=== PATIENT | female | born 1950 | race Two or more races ===

== ENCOUNTER 2019-01-01 21:57 | Inpatient (IN) | payer MEDICARE, MEDICAID | END 2019-01-04 15:00 | disposition home or self-care (01) | LOC: OVERFLOW 01-02 06:29 → EAST 01-02 08:00 → ER 21:57 | DX: K94.23 Gastrostomy malfunction (principal); N39.0 Urinary tract infection, site not specified; E44.1 Mild protein-calorie malnutrition; I69.920 Aphasia following unspecified cerebrovascular disease ==

== ENCOUNTER 2019-10-06 14:43 | Inpatient (IN) | payer MEDICARE, MEDICAID ==
[~2019-10-06] VITALS: Ht 154.9 cm; Wt 73.5 kg
[~2019-10-06 14:43] MED LIST: ASPI1TAB19 GT; ATOR20TA GT; FAMO-12 GT; LEVE500T22 PO; METF-370 GT
[2019-10-06] MEDS ORDERED: SODIUM CHLORIDE 0.9% 1,000 ML IV ONE ×2 (15:23)
[2019-10-06] MEDS ORDERED: cefTRIAXone 1GM/50ML D5W 50 ML IV ONE (16:00)
[2019-10-06 17:04] LABS: Basophils # (auto) 0 10 ^3/uL (0-0.2); Basophils % (auto) 0.4 % (0.0-2.0); Eosinophils # (auto) 0.1 10 ^3/uL (0-0.8); Eosinophils % (auto) 2.2 % (0.0-7.0); Hematocrit 42.5 % (36.0-46.0); Hemoglobin 14.7 g/dL (12.2-16.2); Lymphocytes # (auto) 2.2 10 ^3/uL (0.4-5.4); Lymphocytes % (auto) 35.3 % (10.0-50.0); Mean Corpuscular Hemoglobin 32.5 pg (28.0-32.0); Mean Corpuscular Hgb Conc. 34.6 g/dL (32.0-36.0); Mean Corpuscular Volume 93.8 fL (80.0-100.0); Monocytes # (auto) 0.4 10 ^3/uL (0-1.3); Monocytes % (auto) 6.9 % (0.0-12.0); Neutrophils # (auto) 3.4 10 ^3/uL (1.6-8.6); Neutrophils % (auto) 55.2 % (37.0-80.0); Platelet Count (auto) 174 10^3/uL (140-450); Red Blood Cells 4.53 10^6/uL (4.0-5.20); Red Cell Distribution Width 13.1 % (11.8-14.3); White Blood Cell 6.1 10^3/uL (4.4-10.8)
[2019-10-06 17:08] LABS: Albumin 3.6 g/dL (3.4-5.0); Anion Gap 7 (5-15); Blood Urea Nitrogen 14 mg/dL (7-18); Carbon Dioxide 25 mmol/L (21-32); Chloride 110 mmol/L (98-107); Glucose 153 mg/dL (74-106); Potassium 3.8 mmol/L (3.5-5.1); Sodium 142 mmol/L (136-145)
[2019-10-06 17:12] LABS: Alanine Aminotransferase 66 U/L (13-56); Alkaline Phosphatase 90 U/L (45-117); Aspartate Aminotransferase 40 U/L (15-37); BUN/Creatinine Ratio 31.1; Bilirubin, Total 0.3 mg/dL (0.2-1.0); GFR African American 179 mL/min; GFR Non-African American 148 mL/min; INR 1.05 (0.9-1.15); Partial Thromboplastin Time 23.1 sec (23.64-32.05); Total Protein 7.6 g/dL (6.4-8.2)
[2019-10-06 17:24] LABS: Urine Bacteria MOD /hpf (None Seen); Urine Blood 1+ /uL (Negative); Urine Budding Yeast FEW /hpf (None Seen); Urine Mucus FEW (None Seen); Urine Specific Gravity 1.007 (1.001-1.035); Urine WBC 15 /hpf (0 - 5)
[2019-10-06] MEDS ORDERED: DEXTROSE (50%) 50ML SYRG IV PRN (18:30)
[2019-10-06] MEDS ORDERED: ACETAMINOPHEN 500 MG TAB PO PRN (18:30)
[2019-10-06] MEDS ORDERED: MORPHINE SULF INJ 2 MG/ML SYRINGE 1ML IV PRN ×2 (18:30)
[2019-10-06] MEDS ORDERED: NITROGLYCERIN 0.4 MG SL TAB SL PRN (18:30)
[2019-10-06] MEDS ORDERED: ONDANSETRON HCL 4 MG/2 ML VIAL IV PRN (18:30)
[2019-10-06] MEDS ORDERED: Glucerna 1.2 Cal 1Liter BOTTLE GT SCH (19:15)
--- NOTE | 2019-10-06 21:00 | NUR ---
Telemetry admit from ER RANGEL TORRES admitted to Telemetry unit after SBAR received. Patient oriented to JANE THOMPSON RN primary RN, unit, room, bed, and unit policies regarding patient care and visiting hours. Patient now on continuous telemetry monitoring, tele box # 34 and telemetry reading on arrival to unit is 56 running bradycardia. Patient weighed by bedscale and encouraged to call if they need something. All questions and concerns addressed, patient verbalized understanding. bed in low position and call light within reach.
[2019-10-06 22:00] VITALS: BP 93/40
[2019-10-06] MEDS: DOCUSATE SOD 100 MG CAP PO SCH (22:00)
[2019-10-06] MEDS: levETIRAcetam 500 MG TAB PO SCH (22:00)
[2019-10-06] MEDS: SODIUM CHLORIDE 0.9% 1,000 ML IV SCH (23:29)
[2019-10-06] MEDS: MEROPENEM 1GM IVPB 100 ML IV SCH (23:30)
[2019-10-06] MEDS: InsuLIN REG 1unit/0.01ml Soln (100units/ml) SC SCH (23:33)
[2019-10-06] MEDS: ACCU-CHEK COMFORT CURVE STRIP VI SCH (23:33)
--- NOTE | 2019-10-07 00:39 | NUR ---
INFORMED MENHADEN VESSEL PILOT REZA PATIENT HAS NO DIET SCHEDULED AND HAS GTUBE PLACED FROM HOME. INFORMED MENHADEN VESSEL PILOT PATIENT IS CONFUSED AND I AM UNAWARE IF PATIENT RECEIVES FEEDINGS AT HOME . ORDERS RECEIVED FOR NUTRITION CONSULT. ORDERS READ BACK AND VERIFIED BY .
[2019-10-07] MEDS: MEROPENEM 1GM IVPB 100 ML IV SCH ×3 (01:25→18:39)
--- NOTE | 2019-10-07 01:25 | NUR ---
received medication merrem from pharmacy will administer as ordered.
--- NOTE | 2019-10-07 03:19 | NUR ---
patient is resting in bed denies sob distress or pain. patient repositioned. bed in low position and call light within reach
[2019-10-07 04:36] VITALS: BP 108/58
[2019-10-07 05:54] LABS: Basophils # (auto) 0 10 ^3/uL (0-0.2); Basophils % (auto) 0.5 % (0.0-2.0); Eosinophils # (auto) 0.1 10 ^3/uL (0-0.8); Eosinophils % (auto) 1.9 % (0.0-7.0); Hematocrit 37.8 % (36.0-46.0); Hemoglobin 13.2 g/dL (12.2-16.2); Lymphocytes # (auto) 2.3 10 ^3/uL (0.4-5.4); Lymphocytes % (auto) 36.5 % (10.0-50.0); Mean Corpuscular Hemoglobin 32.5 pg (28.0-32.0); Mean Corpuscular Hgb Conc. 34.9 g/dL (32.0-36.0); Mean Corpuscular Volume 93.2 fL (80.0-100.0); Monocytes # (auto) 0.4 10 ^3/uL (0-1.3); Monocytes % (auto) 6.3 % (0.0-12.0); Neutrophils # (auto) 3.4 10 ^3/uL (1.6-8.6); Neutrophils % (auto) 54.8 % (37.0-80.0); Nucleated Red Blood Cells % 0.1 %; Platelet Count (auto) 153 10^3/uL (140-450); Red Blood Cells 4.06 10^6/uL (4.0-5.20); White Blood Cell 6.2 10^3/uL (4.4-10.8)
[2019-10-07 06:14] LABS: Calcium 8.8 mg/dL (8.5-10.1); Potassium 3.7 mmol/L (3.5-5.1)
[2019-10-07] MEDS: ACCU-CHEK COMFORT CURVE STRIP VI SCH ×4 (06:31→22:00)
[2019-10-07] MEDS: InsuLIN REG 1unit/0.01ml Soln (100units/ml) SC SCH ×4 (06:31→22:00)
--- NOTE | 2019-10-07 06:43 | NUR ---
patient is in bed sleeping bilateral chest rise and fall [id number]. shows no signs of distress sob or pain. bed in low position and call light within reach. bed alarm on.
--- NOTE | 2019-10-07 07:14 | NUR ---
REPORT GIVEN TO DAYSHIFT RN. PATIENT DENIES SOB/DISTRESS OR PAIN
[2019-10-07 07:21] LABS: BUN/Creatinine Ratio 37.5
--- NOTE | 2019-10-07 07:40 | NUR ---
OPENING SHIFT NOTE: PATIENT AWAKE RESTING IN BED. PATIENT A/OX3 TIME UPDATED TO PATIENT AND RE-ORIENTED. PATIENT DENIES ANY PAIN OF DISCOMFORT AT THIS TIME. DON HUNG BELOW BLADDER FREE OF KINKS, TUBES, LINES, AND DRAINS POSITIONED OFF PATIENT SKIN. ROOM WELL LIT, WINDOWS OPENED FOR ORIENTATION. RESPIRATIONS EVEN AND UNLABORED. CALL LIGHT WITHIN REACH, WILL CONTINUE TO MONITOR.
--- NOTE | 2019-10-07 08:35 | NUR ---
FAMILY AT BEDSIDE: MIYA UPDATED ON PLAN OF CARE. PER PATIENT DOES NOT USE THE FEEDING TUBE ANYMORE, AND IS EATING WELL AT HOME.
[2019-10-07 09:00] VITALS: BP 114/67
[2019-10-07] MEDS: DOCUSATE SOD 100 MG CAP PO SCH ×2 (10:00→22:32)
[2019-10-07] MEDS: ASPirin-EC 81 mg tab PO SCH (10:22)
[2019-10-07] MEDS: SODIUM CHLORIDE 0.9% 1,000 ML IV SCH ×2 (10:22→21:10)
[2019-10-07] MEDS: ATORVASTATIN 20 MG TAB PO SCH (10:22)
[2019-10-07] MEDS: levETIRAcetam 500 MG TAB PO SCH ×2 (10:22→22:32)
[2019-10-07] MEDS: metFORMIN HYDROCHLORIDE 500 MG TAB GT SCH (10:22)
[2019-10-07] MEDS: FAMOTIDINE 20 MG TAB GT SCH (10:23)
[2019-10-07] MEDS ORDERED: FLUCONAZOLE 100 MG TAB PO ONE (12:00)
--- NOTE | 2019-10-07 12:37 | NUR ---
AIR MATTRESS: Air mattress ordered at [facility],Reference # [id number]; ETA 10/07/19 @1836, Call [facility] if need to follow up at [phone] Addendum: 10/07/19 at 1238 by Pita Serna RN Amended: Links added.
[2019-10-07 12:51] VITALS: BP 124/69
--- NOTE | 2019-10-07 12:59 | NUR ---
DON CHANGED: 14FR INSERTED, 10CC NS FILLED BALLOON, HUNG BELOW BLADDER, CATHETER FREE OF KINKS. PATIENT TOLERATED WELL.
[2019-10-07] MEDS ORDERED: Glucerna 1.2 Cal 1Liter BOTTLE GT SCH (13:30)
--- NOTE | 2019-10-07 13:46 | NUR ---
WOUND CARE NOTE: Wound care in to see patient per wound care request regarding low Mayur score of 12,putting patient to high risk for skin breakdown. Patient is 69 years old female with admitting diagnosis of Acute Cystitis. Patient with history of htn,NIDDM, CVA w/ Lt side deficit,and Seizure disorder. Patient is resting in bed in Rm. 202. Patient is awake, alert and able to verbalize needs. Patient is in no stated pain at this time and she appears to be in no pain using Leyva Khan Faces pain Scale. She need assistance in turning and repositioning. Skin assessment done with the help of nurse lab assistant. No open wound noted other than intact pink scar tissue to sacrum. Patient is receiving BID/PRN cleaning and application of Barrier cream to sacral,buttocks as preventative per MD order. Patient tolerated well, repositioned for comfort facing her Rt side, redistributed pressure points with pillows and elevated heels on pillows. Patient's family and nurse lab assistant at bedside. Patient will benefit with air mattress, she weighs 39.3 kg. RECOMMENDATION: Nursing to continue with BID/PRN cleaning and application of barrier cream to sacral,buttocks as preventative per MD order, Dietary consult for Low Mayur score, elevate heels on pillow,frequent turning and repositioning schedule as condition permits, redistribute pressure points with pillows, air mattress (ordered), continue monitoring by wound care while patient is hospitalized. Addendum: 10/07/19 at 1626 by Pita Serna RN Amended: Links added.
--- NOTE | 2019-10-07 15:08 | NUR ---
SWALLOW EVALUATED. PATIENT HAS NATURAL TEETH, UPPER AND LOWER. ABLE TO FOLLOW COMMANDS FROM ARMENIAN-CHADIAN SHIRA. PATIENT ABLE TO TOLERATE MECHANICAL SOFT DIET TEXTURE WITH THIN LIQUIDS WITH NO OVERT SIGNS OR SYMPTOMS OF ASPIRATION. NURSING PRESENT.
--- NOTE | 2019-10-07 15:57 | NUR ---
Nutrition Assessment Notes Please refer to link for full assessment notes. Est energy needs: 1735-8828 kcals (23-25 kcal/kgIBW) d/t age, underweight Est protein needs: 49-62 gms/day (0.8-1.0 gm/kgIBW) Will continue to monitor and reassess prn. Addendum: 10/07/19 at [address] Amended: Links added.
--- NOTE | 2019-10-07 16:35 | NUR ---
Midline Placement: Patient educated on need for midline placement. All risks and benefits explained and all questions and concerns addresses prior to procedure. 18g/10cm midline inserted via RIGHT CEPHALIC vein using Ultrasound. Sterile technique utilized. Blood return obtained from lumen and flushed easily with NS using proper technique. Midline secured with saline lock; biodisc and occlusive dressing applied. Primary RN notified. Midline lot #[id number].
[2019-10-07 17:00] VITALS: BP 124/62
--- NOTE | 2019-10-07 17:20 | NUR ---
AIR MATTRESS: PATIENT PLACED ON SPECIALTY AIR MATTRESS.
--- NOTE | 2019-10-07 18:40 | NUR ---
DINNER: PATIENT MAX ASSIST WITH FEEDING. PATIENT APPEARS TO HAVE GOOD APPETITE TOLERATING DIET WELL. ASPIRATION AND SEIZURE PRECAUTIONS IN PLACE.
--- NOTE | 2019-10-07 19:21 | NUR ---
CARE ENDORSED TO LETTY LANDAVERDE.
[2019-10-07 21:58] VITALS: BP 126/58
[2019-10-08 05:00] VITALS: BP 121/53
[2019-10-08] MEDS: MEROPENEM 1GM IVPB 100 ML IV SCH ×2 (06:19→18:19)
[2019-10-08] MEDS: ACCU-CHEK COMFORT CURVE STRIP VI SCH ×4 (06:20→22:43)
[2019-10-08] MEDS: InsuLIN REG 1unit/0.01ml Soln (100units/ml) SC SCH ×4 (06:26→22:46)
[2019-10-08 09:00] VITALS: BP 103/53
[2019-10-08] MEDS: ASPirin-EC 81 mg tab PO SCH (09:58)
[2019-10-08] MEDS: FAMOTIDINE 20 MG TAB GT SCH (09:58)
[2019-10-08] MEDS: ATORVASTATIN 20 MG TAB PO SCH (09:58)
[2019-10-08] MEDS: levETIRAcetam 500 MG TAB PO SCH ×2 (09:58→22:47)
[2019-10-08] MEDS: DOCUSATE SOD 100 MG CAP PO SCH ×2 (09:58→22:47)
[2019-10-08] MEDS: metFORMIN HYDROCHLORIDE 500 MG TAB GT SCH (10:14)
--- NOTE | 2019-10-08 12:51 | NUR ---
I faxed home IV ATB order to [facility].
[2019-10-08 13:00] VITALS: BP 122/57
--- NOTE | 2019-10-08 13:00 | NUR ---
NPO UNTIL 1999: CALL FROM ULTRASOUND, PATIENT TO BE NPO UNTIL 1999 OR 2099 FOR [facility] ULTRASOUND.
--- NOTE | 2019-10-08 14:30 | NUR ---
assessment Patient is a 69 year old female who is confused. Per patients daughter Malia prior to admission patient lived home with family and functioned with assistance. Patient has a hospital bed, wheelchair, and 02 for home use. Patients PCP is Dr Wood. Bret Finley patient is on service with [facility]. Per Malia patient to resume with [facility] on discharge. I informed Malia of patients consult for home IV ABX. Per Malia [facility] and she is teachable. Ivett casework supervisor and Erika BERNARD will satisfy order. Malia verbalized understanding and agreed to discharge plan home. Addendum: 10/08/19 at 1434 by Peggy EWING Amended: Links added.
--- NOTE | 2019-10-08 16:07 | NUR ---
D/C Planning Per consult to resume home health with [facility] for IV abx with Meropenem 1 gm q12h for 12 days. Faxed order to [facility] home health. JONATHAN Root will complete the IV abx infusion. Received a followed up called from Ms. Navarro with [facility] ) or Ph: ) advising me they will see patient within 24-48hrs upon d/c day. Will follow up with [facility] upon d/c day.
[2019-10-08 17:00] VITALS: BP 124/70
--- NOTE | 2019-10-08 19:17 | NUR ---
CARE ENDORSED TO LETTY LANDAVERDE.
--- NOTE | 2019-10-08 19:47 | NUR ---
REPORT GIVEN TO EDDI LANDAVERDE. PATIENT RESTING WITH NO S/S OF DISTRESS NOTED.
--- NOTE | 2019-10-08 19:49 | NUR ---
Opening Shift Note Assumed care of patient. Pt is awake, alert and orientated x 4. No S/S of distress/SOB or pain. Pt is calm and speaking appropriately. Pt is NPO awaiting US of abdomen. Pt has severe lower and upper extremity contractures. Bed is in lowest position with side rails up x 2. Bed brakes are locked and call light is with in reach. HOB is 30 degrees. Valadez catheter is patent with no kinks, loops, and is below bladder. Instructed on POC and to call for assist PRN, will continue to monitor for changes Q1hr and PRN.
[2019-10-08 21:20] VITALS: BP 115/53
[2019-10-09 05:16] VITALS: BP 107/54
[2019-10-09] MEDS: MEROPENEM 1GM IVPB 100 ML IV SCH ×2 (05:35→14:14)
[2019-10-09] MEDS: ACCU-CHEK COMFORT CURVE STRIP VI SCH ×2 (06:06→11:00)
[2019-10-09] MEDS: InsuLIN REG 1unit/0.01ml Soln (100units/ml) SC SCH ×2 (06:07→11:00)
[2019-10-09 08:00] VITALS: BP 104/57
[2019-10-09] MEDS: metFORMIN HYDROCHLORIDE 500 MG TAB GT SCH (08:01)
[2019-10-09 09:24] LABS: Hepatitis B Surface Antibody Negative
[2019-10-09] MEDS: DOCUSATE SOD 100 MG CAP PO SCH (09:37)
[2019-10-09] MEDS: FAMOTIDINE 20 MG TAB GT SCH (09:37)
[2019-10-09] MEDS: ASPirin-EC 81 mg tab PO SCH (09:37)
[2019-10-09] MEDS: levETIRAcetam 500 MG TAB PO SCH (09:38)
[2019-10-09] MEDS: ATORVASTATIN 20 MG TAB PO SCH (09:38)
[2019-10-09 09:53] LABS: Hepatitis A Total Antibody Positive
[2019-10-09 10:10] LABS: Hepatitis B Core Total AB Negative; Hepatitis B Surface Antigen Negative (Negative); Hepatitis C Antibody Negative (Negative)
--- NOTE | 2019-10-09 10:53 | NUR ---
Faxed flush order to [facility].
[2019-10-09 12:00] VITALS: BP 112/54
--- NOTE | 2019-10-09 13:26 | NUR ---
I received a call from Sohan at [facility] asking if today's last dose of IV ATB can be given prior to discharge so they don't have to send a nurse out until tomorrow. I spoke with patient's nurse-she will give today's last IV ATB dose now-provided her with phone numbers to [facility] ([phone]) as well as [facility] ([phone]) to provide to patient's family. Addendum: 10/09/19 at 1533 by Ivett Landry RN Bret Schmitt at [facility], they will deliver IV ATB to patient's home 7-10pm rené.
--- NOTE | 2019-10-09 17:34 | NUR ---
Discharge instructions given as ordered. Encourage to follow up with PMD as instructed. All questions and concerns addressed. Patient verbalized understanding. Medication reconciliation form completed and copy given to patient. Patient sent home with midline Patient sent home with Valadez catheter. Telemetry unit returned to ICU. Patient taken to vehicle via wheelchair with all personal belongings, accompanied by staff and family member. No distress noted at time of departure.
== END 2019-10-09 17:33 | disposition home health service (06) | DRG 690 ==
LOC: EDBD 14:43 → ER 14:57 → TELE 14:58 → TELE-CENTR 20:58
PROVIDERS: ADMIT Nurse Practitioner Acute Care; ATTEND Internal Medicine
DX: N39.0 Urinary tract infection, site not specified (principal); I69.354 Hemiplegia and hemiparesis following cerebral infarction affecting left non-dominant side; E86.0 Dehydration; B96.5 Pseudomonas (aeruginosa) (mallei) (pseudomallei) as the cause of diseases classified elsewhere; B96.20 Unspecified Escherichia coli [E. coli] as the cause of diseases classified elsewhere; B37.3 Candidiasis of vulva and vagina; E11.9 Type 2 diabetes mellitus without complications; G40.909 Epilepsy, unspecified, not intractable, without status epilepticus; I10 Essential (primary) hypertension
CPT/HCPCS: 36415; 71045; 76705; 80048; 80053; 81001; 82962; 83036; 83605; 83880; 84484; 85025; 85610; 85730; 86704; 86706; 86708; 86803; 87040; 87081; 87086; 87340; 92610; G0378; J0696; J1815; J2185

== ENCOUNTER 2021-08-27 15:50 | Emergency (ER) | payer MEDICARE, MEDICAID ==
[~2021-08-27] VITALS: Ht 167.6 cm; Wt 54.4 kg
[~2021-08-27 15:50] MED LIST changes: -LEVE500T22 PO; +LEVE500T32 PO
[2021-08-27 17:19] VITALS: BP 115/63
[2021-08-27] MEDS ORDERED: CIPR-173 PO (17:23)
== END 2021-08-27 17:47 | disposition home or self-care (01) ==
LOC: ER 15:54
DX: Z46.6 Encounter for fitting and adjustment of urinary device (principal); N39.0 Urinary tract infection, site not specified; E11.9 Type 2 diabetes mellitus without complications; E78.5 Hyperlipidemia, unspecified; Z86.73 Personal history of transient ischemic attack (TIA), and cerebral infarction without residual deficits; Z79.82 Long term (current) use of aspirin; Z79.2 Long term (current) use of antibiotics; Z79.899 Other long term (current) drug therapy
CPT/HCPCS: 51702

== ENCOUNTER 2021-10-31 11:23 | Emergency (ER) | payer MEDICARE, MEDICAID ==
[~2021-10-31] VITALS: Ht 162.6 cm; Wt 54.4 kg
[~2021-10-31 11:23] MED LIST changes: +CEFD300C2 PO; +CIPR-173 PO
[2021-10-31 12:14] LABS: Basophils # (auto) 0 10 ^3/uL (0-0.2); Basophils % (auto) 0.7 % (0.0-2.0); Eosinophils # (auto) 0.1 10 ^3/uL (0-0.8); Eosinophils % (auto) 2.8 % (0.0-7.0); Hematocrit 43.1 % (36.0-46.0); Hemoglobin 14.6 g/dL (12.2-16.2); Lymphocytes # (auto) 1.7 10 ^3/uL (0.4-5.4); Lymphocytes % (auto) 34.6 % (10.0-50.0); Mean Corpuscular Hemoglobin 31.8 pg (28.0-32.0); Mean Corpuscular Hgb Conc. 33.9 g/dL (32.0-36.0); Mean Corpuscular Volume 93.9 fL (80.0-100.0); Monocytes # (auto) 0.2 10 ^3/uL (0-1.3); Monocytes % (auto) 3.9 % (0.0-12.0); Neutrophils # (auto) 2.9 10 ^3/uL (1.6-8.6); Nucleated Red Blood Cells % 0.2 %; Red Blood Cells 4.59 10^6/uL (4.0-5.20); Red Cell Distribution Width 13.7 % (11.8-14.3); White Blood Cell 4.9 10^3/uL (4.4-10.8)
[2021-10-31 12:33] LABS: Potassium 4.2 mmol/L (3.5-5.1)
[2021-10-31 12:37] LABS: Albumin 3.7 g/dL (3.4-5.0); BUN/Creatinine Ratio 18.6; Bilirubin, Total 0.6 mg/dL (0.2-1.0); Calcium 9.4 mg/dL (8.5-10.1); Total Protein 7.7 g/dL (6.4-8.2)
[2021-10-31 17:31] LABS: Urine Amorphous Crystal FEW /hpf (None Seen); Urine Bacteria MANY /hpf (None Seen); Urine Blood 1+ /uL (Negative); Urine Mucus FEW (None Seen); Urine Specific Gravity 1.021 (1.001-1.035); Urine WBC 492 /hpf (0 - 5); Urine WBC Clumps PRESENT /hpf (None Seen)
[2021-10-31] MEDS ORDERED: NITR-87 PO (19:59)
[2021-10-31] MEDS ORDERED: FLEET ENEMA(ADULT) 135 ML PR ONE (20:00)
[2021-10-31] MEDS ORDERED: NITROFURANTOIN 100 mg CAP PO ONE (20:00)
[2021-11-01 00:23] VITALS: BP 115/61
== END 2021-11-01 00:24 | disposition home or self-care (01) ==
LOC: ER 11:23
DX: N39.0 Urinary tract infection, site not specified (principal); K56.41 Fecal impaction; E11.9 Type 2 diabetes mellitus without complications; E78.5 Hyperlipidemia, unspecified; Z86.73 Personal history of transient ischemic attack (TIA), and cerebral infarction without residual deficits
CPT/HCPCS: 36415; 74176; 80053; 81001; 82150; 83690; 85025

== ENCOUNTER 2022-01-13 09:32 | Emergency (ER) | payer MEDICARE, MEDICAID ==
[~2022-01-13] VITALS: Ht 162.6 cm; Wt 54.4 kg
[~2022-01-13 09:32] MED LIST changes: +NITR-87 PO
[2022-01-13] MEDS ORDERED: OMNIPAQUE ORAL SOLN 500ml 12mg/ml PO ONE (10:47)
[2022-01-13 10:50] LABS: Basophils # (auto) 0 10 ^3/uL (0-0.2); Basophils % (auto) 0.5 % (0.0-2.0); Eosinophils # (auto) 0.1 10 ^3/uL (0-0.8); Eosinophils % (auto) 2.8 % (0.0-7.0); Hematocrit 41.2 % (36.0-46.0); Hemoglobin 13.9 g/dL (12.2-16.2); Lymphocytes # (auto) 1.7 10 ^3/uL (0.4-5.4); Mean Corpuscular Hemoglobin 32.5 pg (28.0-32.0); Mean Corpuscular Hgb Conc. 33.9 g/dL (32.0-36.0); Mean Corpuscular Volume 96.1 fL (80.0-100.0); Monocytes # (auto) 0.3 10 ^3/uL (0-1.3); Monocytes % (auto) 5.1 % (0.0-12.0); Neutrophils # (auto) 3.1 10 ^3/uL (1.6-8.6); Neutrophils % (auto) 58.6 % (37.0-80.0); Nucleated Red Blood Cells % 0.1 %; Red Blood Cells 4.29 10^6/uL (4.0-5.20); Red Cell Distribution Width 13.9 % (11.8-14.3); White Blood Cell 5.2 10^3/uL (4.4-10.8)
[2022-01-13 11:08] LABS: Albumin 3.8 g/dL (3.4-5.0); BUN/Creatinine Ratio 14.6; Calcium 9.1 mg/dL (8.5-10.1); Potassium 3.9 mmol/L (3.5-5.1)
[2022-01-13 11:11] LABS: Bilirubin, Total 0.5 mg/dL (0.2-1.0); Total Protein 7.5 g/dL (6.4-8.2)
[2022-01-13] MEDS ORDERED: DOCUSATE SOD 100 MG CAP PO ONE (15:15)
[2022-01-13] MEDS ORDERED: LACTULOSE 20Gm/30ML SOLN PO ONE (15:15)
[2022-01-13] MEDS ORDERED: MILK OF MAGNESIA 30ML SUSP PO ONE (15:15)
[2022-01-13] MEDS ORDERED: FLEET ENEMA(ADULT) 135 ML PR ONE (17:30)
[2022-01-13] MEDS ORDERED: DOCU-94 PO ×2 (17:36→17:38)
[2022-01-13 22:00] VITALS: BP 117/63
== END 2022-01-14 00:59 | disposition home or self-care (01) ==
LOC: ER 09:32
DX: K59.00 Constipation, unspecified (principal); E78.5 Hyperlipidemia, unspecified; Z86.73 Personal history of transient ischemic attack (TIA), and cerebral infarction without residual deficits
CPT/HCPCS: 36415; 74022; 74176; 80053; 85025

== ENCOUNTER 2022-05-18 06:28 | Day surgery (SDC) | payer MEDICARE, MEDICAID ==
[2022-05-15 12:14] LABS: Basophils # (auto) 0 10 ^3/uL (0-0.2); Basophils % (auto) 0.5 % (0.0-2.0); Eosinophils # (auto) 0.1 10 ^3/uL (0-0.8); Eosinophils % (auto) 1.6 % (0.0-7.0); Hematocrit 41.4 % (36.0-46.0); Hemoglobin 13.9 g/dL (12.2-16.2); Lymphocytes # (auto) 1.5 10 ^3/uL (0.4-5.4); Lymphocytes % (auto) 30.8 % (10.0-50.0); Mean Corpuscular Hemoglobin 31.9 pg (28.0-32.0); Mean Corpuscular Hgb Conc. 33.5 g/dL (32.0-36.0); Mean Corpuscular Volume 95.3 fL (80.0-100.0); Monocytes # (auto) 0.3 10 ^3/uL (0-1.3); Monocytes % (auto) 5.5 % (0.0-12.0); Neutrophils % (auto) 61.6 % (37.0-80.0); Nucleated Red Blood Cells % 0.1 %; Red Blood Cells 4.35 10^6/uL (4.0-5.20); Red Cell Distribution Width 13.6 % (11.8-14.3); White Blood Cell 4.8 10^3/uL (4.4-10.8)
[2022-05-15 12:51] LABS: Urine Bacteria NONE SEEN /hpf (None Seen); Urine Blood Negative /uL (Negative); Urine Specific Gravity 1.012 (1.001-1.035); Urine WBC 32 /hpf (0 - 5)
[2022-05-15 12:56] LABS: Albumin 3.6 g/dL (3.4-5.0); BUN/Creatinine Ratio 20.5; Bilirubin, Total 0.5 mg/dL (0.2-1.0); Calcium 8.7 mg/dL (8.5-10.1); Total Protein 7.2 g/dL (6.4-8.2)
[2022-05-15 13:37] LABS: INR 1.05 (0.9-1.15); Partial Thromboplastin Time 26.8 sec (24.6-33.4)
[~2022-05-18] VITALS: Ht 162.6 cm; Wt 54.4 kg
[~2022-05-18 06:28] MED LIST changes: +BISA-51 RC; -CEFD300C2 PO; +CHOL100067 PO; -CIPR-173 PO; +CLOT1CRE EX; +CRAN400C PO; -FAMO-12 GT; +GABA600T PO; +GINK120T3 PO; +HYDR5CRE3 PR; +IBUP800T27 PO; +LACT10SO3 PO; +LOTE0.5S OP; +MELA3TAB27 PO; -METF-370 GT; -NITR-87 PO; +OMEGCAP28 OR; +ZINC50TA7 PO; +[UNRECOGNIZED DRUG - CODE] PO
[2022-05-18] MEDS ORDERED: SUCCINYLCHOLINE CHLORIDE 20 MG/ML 10ML VIAL IV ONE (06:51)
[2022-05-18] MEDS ORDERED: fentaNYL CITRATE 100 MCG/2 ML VL ONE (07:04)
[2022-05-18] MEDS ORDERED: PROPOFOL 10 MG/ML 20 ML IV ONE (07:05)
[2022-05-18] MEDS ORDERED: ONDANSETRON HCL 4 MG/2 ML VIAL ONE (07:05)
[2022-05-18] MEDS ORDERED: MIDAZOLAM HCL 2MG/2ML 2ml VIAL (1mg/ml) ONE (07:05)
[2022-05-18] MEDS ORDERED: SODIUM CHLORIDE LOCK 10 ML ONE (07:05)
[2022-05-18] MEDS ORDERED: DexAMETHasone SOD PHOS 10MG/1ML VIAL INJ ONE (07:05)
[2022-05-18] MEDS ORDERED: MORPHINE SULFATE 4 MG/ML SYR/VIAL IV PRN (07:15)
[2022-05-18] MEDS ORDERED: HYDROmorphone HCL 2 MG/ML VL/or syr IV PRN (07:15)
[2022-05-18] MEDS ORDERED: METOCLOPRAMIDE HCL 5MG/ml INJ 2ml VIAL IV PRN (07:15)
[2022-05-18] MEDS ORDERED: ACCU-CHEK COMFORT CURVE STRIP VI ONE (07:15)
[2022-05-18] MEDS ORDERED: CIPROFLOXACIN 400MG/200ML 200 ML IV ONE (07:41)
[2022-05-18 09:00] VITALS: BP 118/59
== END 2022-05-18 09:25 | disposition home or self-care (01) ==
LOC: SUR 06:28
PROVIDERS: ATTEND Urology
DX: R33.9 Retention of urine, unspecified (principal); M62.3 Immobility syndrome (paraplegic); N39.0 Urinary tract infection, site not specified; Z86.73 Personal history of transient ischemic attack (TIA), and cerebral infarction without residual deficits; E11.9 Type 2 diabetes mellitus without complications; E78.5 Hyperlipidemia, unspecified; Z88.0 Allergy status to penicillin; Z98.891 History of uterine scar from previous surgery; Z20.822 Contact with and (suspected) exposure to COVID-19
CPT/HCPCS: 36415; 52000; 80053; 81001; 82962; 85025; 85610; 85730; 87086; C1769; J0330; J0744; J1100; J2250; J2405; J2704; J3010; J7030; U0003

== ENCOUNTER 2022-11-08 17:21 | Inpatient (IN) | payer MEDICARE, MEDICAID ==
[~2022-11-08] VITALS: Ht 157.5 cm; Wt 51.4 kg
[~2022-11-08 17:21] MED LIST changes: -ASPI1TAB19 GT; +ASPI1TAB19 PO
[2022-11-08 21:33] LABS: Basophils # (auto) 0.1 10 ^3/uL (0-0.2); Basophils % (auto) 0.7 % (0.0-2.0); Eosinophils # (auto) 0.2 10 ^3/uL (0-0.8); Eosinophils % (auto) 2.4 % (0.0-7.0); Hematocrit 40.6 % (36.0-46.0); Hemoglobin 13.9 g/dL (12.2-16.2); Lymphocytes # (auto) 2.3 10 ^3/uL (0.4-5.4); Lymphocytes % (auto) 28.3 % (10.0-50.0); Mean Corpuscular Hgb Conc. 34.2 g/dL (32.0-36.0); Mean Corpuscular Volume 93.7 fL (80.0-100.0); Monocytes # (auto) 0.4 10 ^3/uL (0-1.3); Monocytes % (auto) 4.6 % (0.0-12.0); Neutrophils # (auto) 5.2 10 ^3/uL (1.6-8.6); Red Blood Cells 4.34 10^6/uL (4.0-5.20); Red Cell Distribution Width 14.1 % (11.8-14.3); White Blood Cell 8.1 10^3/uL (4.4-10.8)
[2022-11-08 22:05] LABS: Albumin 3.7 g/dL (3.4-5.0); Calcium 9.1 mg/dL (8.5-10.1); Potassium 4.3 mmol/L (3.5-5.1)
[2022-11-08 22:08] LABS: BUN/Creatinine Ratio 11.1 (10.0-20.0)
[2022-11-08 22:17] LABS: Bilirubin, Total 0.3 mg/dL (0.2-1.0); Total Protein 7.7 g/dL (6.4-8.2)
[2022-11-09] MEDS ORDERED: ONDANSETRON HCL 4 MG/2 ML VIAL IV ONE (04:15)
[2022-11-09] MEDS ORDERED: MORPHINE SULFATE 4 MG/ML SYR/VIAL IV ONE (04:15)
[2022-11-09] MEDS ORDERED: FLEET ENEMA(ADULT) 135 ML PR ONE (04:45)
[2022-11-09] MEDS ORDERED: ONDANSETRON HCL 4 MG/2 ML VIAL IV PRN (04:45)
[2022-11-09 09:00] VITALS: BP 118/64
[2022-11-09] MEDS ORDERED: ATOR40TA52 PO (09:30)
[2022-11-09] MEDS ORDERED: CLOT1SOL6 EX (09:36)
[2022-11-09] MEDS ORDERED: SULF400T PO (09:40)
[2022-11-09] MEDS ORDERED: CHOL100067 PO (09:45)
[2022-11-09] MEDS ORDERED: CRAN600T PO (09:45)
[2022-11-09] MEDS ORDERED: MELA10CA PO (09:45)
[2022-11-09] MEDS: levETIRAcetam 500 MG TAB PO SCH ×2 (10:04→21:40)
[2022-11-09] MEDS: DOCUSATE ORAL LIQUID 100 MG/10 ML UD GT SCH ×2 (10:04→21:40)
[2022-11-09] MEDS: ENOXAPARIN SOD 40 MG/0.4 ML SYRINGE SC SCH (10:07)
[2022-11-09 13:00] VITALS: BP 135/69
[2022-11-09] MEDS: ACETAMINOPHEN 325 MG TAB PO PRN (15:47)
[2022-11-09 17:00] VITALS: BP 130/60
[2022-11-09] MEDS: ATORVASTATIN 20 MG TAB PO SCH (21:40)
[2022-11-09 22:00] VITALS: BP 108/35
[2022-11-10 05:00] VITALS: BP 95/45
[2022-11-10 05:10] LABS: Urine Bacteria NONE SEEN /hpf (None Seen); Urine Blood Negative /uL (Negative); Urine Specific Gravity 1.011 (1.001-1.035); Urine WBC 7 /hpf (0 - 5); Urine WBC Clumps PRESENT /hpf (None Seen)
[2022-11-10 06:36] LABS: Basophils # (auto) 0.1 10 ^3/uL (0-0.2); Basophils % (auto) 0.9 % (0.0-2.0); Eosinophils # (auto) 0.2 10 ^3/uL (0-0.8); Eosinophils % (auto) 3.7 % (0.0-7.0); Hematocrit 36.7 % (36.0-46.0); Hemoglobin 12.7 g/dL (12.2-16.2); Lymphocytes # (auto) 1.8 10 ^3/uL (0.4-5.4); Lymphocytes % (auto) 31.3 % (10.0-50.0); Mean Corpuscular Hemoglobin 32.4 pg (28.0-32.0); Mean Corpuscular Hgb Conc. 34.5 g/dL (32.0-36.0); Mean Corpuscular Volume 93.9 fL (80.0-100.0); Monocytes # (auto) 0.4 10 ^3/uL (0-1.3); Monocytes % (auto) 7.7 % (0.0-12.0); Neutrophils # (auto) 3.2 10 ^3/uL (1.6-8.6); Neutrophils % (auto) 56.4 % (37.0-80.0); Nucleated Red Blood Cells % 0.1 %; Red Blood Cells 3.92 10^6/uL (4.0-5.20); Red Cell Distribution Width 13.9 % (11.8-14.3); White Blood Cell 5.6 10^3/uL (4.4-10.8)
[2022-11-10 06:46] LABS: Calcium 8.7 mg/dL (8.5-10.1); Potassium 3.6 mmol/L (3.5-5.1)
[2022-11-10 06:49] LABS: BUN/Creatinine Ratio 26.3 (10.0-20.0)
[2022-11-10 09:00] VITALS: BP 117/65
[2022-11-10] MEDS: levETIRAcetam 500 MG TAB PO SCH ×2 (09:53→22:20)
[2022-11-10] MEDS: ENOXAPARIN SOD 40 MG/0.4 ML SYRINGE SC SCH (09:53)
[2022-11-10] MEDS: DOCUSATE ORAL LIQUID 100 MG/10 ML UD GT SCH (09:54)
[2022-11-10] MEDS ORDERED: FLEET ENEMA(ADULT) 135 ML PR ONE (12:30)
[2022-11-10 13:00] VITALS: BP 112/69
[2022-11-10] MEDS ORDERED: FLEET MINERAL OIL ENEMA 133 ML PR ONE (13:00)
[2022-11-10 17:00] VITALS: BP 106/44
[2022-11-10] MEDS: LACTULOSE 20Gm/30ML SOLN PO SCH (18:05)
[2022-11-10] MEDS: DOCUSATE ORAL LIQUID 100 MG/10 ML UD PO SCH ×2 (18:30→22:19)
[2022-11-10 20:00] VITALS: BP 100/63
[2022-11-10 22:00] VITALS: BP 100/63
[2022-11-10] MEDS: ATORVASTATIN 20 MG TAB PO SCH (22:19)
[2022-11-11 05:00] VITALS: BP 114/59
[2022-11-11] MEDS: LACTULOSE 20Gm/30ML SOLN PO SCH ×4 (05:26→17:45)
[2022-11-11 08:00] VITALS: BP 126/59
[2022-11-11 09:00] VITALS: BP 126/59
[2022-11-11] MEDS: levETIRAcetam 500 MG TAB PO SCH ×2 (10:17→22:47)
[2022-11-11] MEDS: ENOXAPARIN SOD 40 MG/0.4 ML SYRINGE SC SCH (10:25)
[2022-11-11] MEDS ORDERED: FLEET ENEMA(ADULT) 135 ML PR ONE (12:15)
[2022-11-11 13:00] VITALS: BP 110/43
[2022-11-11] MEDS ORDERED: POLYETHYLENE GLYCOL 17 GM PWDR PO ONE (15:30)
[2022-11-11 17:21] VITALS: BP 102/51
[2022-11-11 22:00] VITALS: BP 112/64
[2022-11-11] MEDS: ATORVASTATIN 20 MG TAB PO SCH (22:47)
[2022-11-11] MEDS: DOCUSATE ORAL LIQUID 100 MG/10 ML UD PO SCH (22:47)
[2022-11-12] MEDS: LACTULOSE 20Gm/30ML SOLN PO SCH ×5 (01:38→23:03)
[2022-11-12 05:00] VITALS: BP 106/47
[2022-11-12] MEDS ORDERED: POLYETHYLENE GLYCOL 17 GM PWDR PO ONE (08:00)
[2022-11-12 08:05] VITALS: BP 138/66
[2022-11-12 09:00] VITALS: BP 138/66
[2022-11-12] MEDS: DOCUSATE ORAL LIQUID 100 MG/10 ML UD PO SCH ×2 (10:47→23:05)
[2022-11-12] MEDS: levETIRAcetam 500 MG TAB PO SCH ×2 (10:47→23:05)
[2022-11-12] MEDS: ENOXAPARIN SOD 40 MG/0.4 ML SYRINGE SC SCH (10:47)
[2022-11-12] MEDS: ACETAMINOPHEN 325 MG TAB PO PRN ×2 (10:56→16:55)
[2022-11-12] MEDS ORDERED: GOLYTELY 4L KIT PO ONE (11:15)
[2022-11-12 13:17] VITALS: BP 108/62
[2022-11-12 17:00] VITALS: BP 105/49
[2022-11-12 22:00] VITALS: BP 91/44
[2022-11-12] MEDS: ATORVASTATIN 20 MG TAB PO SCH (23:05)
[2022-11-13 05:00] VITALS: BP 92/41
[2022-11-13] MEDS ORDERED: GOLYTELY 4L KIT PO ONE (06:00)
[2022-11-13] MEDS: LACTULOSE 20Gm/30ML SOLN PO SCH ×4 (06:12→23:29)
[2022-11-13 06:59] LABS: INR 1.07 (0.9-1.15); Partial Thromboplastin Time 25.6 sec (24.6-33.4)
[2022-11-13] MEDS ORDERED: MIDAZOLAM HCL 2MG/2ML 2ml VIAL (1mg/ml) ONE (07:13)
[2022-11-13] MEDS ORDERED: diphenhdrAMINE HCL 50 MG/1 ML VL ONE (07:13)
[2022-11-13] MEDS ORDERED: fentaNYL CITRATE 100 MCG/2 ML VL ONE (07:13)
[2022-11-13 07:31] LABS: Basophils # (auto) 0 10 ^3/uL (0-0.2); Basophils % (auto) 0.6 % (0.0-2.0); Eosinophils # (auto) 0.2 10 ^3/uL (0-0.8); Eosinophils % (auto) 4.2 % (0.0-7.0); Hemoglobin 12.4 g/dL (12.2-16.2); Lymphocytes # (auto) 2.2 10 ^3/uL (0.4-5.4); Lymphocytes % (auto) 51.5 % (10.0-50.0); Mean Corpuscular Hemoglobin 32.7 pg (28.0-32.0); Mean Corpuscular Hgb Conc. 34.3 g/dL (32.0-36.0); Mean Corpuscular Volume 95.3 fL (80.0-100.0); Monocytes # (auto) 0.3 10 ^3/uL (0-1.3); Monocytes % (auto) 6.7 % (0.0-12.0); Neutrophils # (auto) 1.6 10 ^3/uL (1.6-8.6); Nucleated Red Blood Cells % 0.2 %; Red Blood Cells 3.78 10^6/uL (4.0-5.20); Red Cell Distribution Width 14.3 % (11.8-14.3); White Blood Cell 4.2 10^3/uL (4.4-10.8)
[2022-11-13 07:52] LABS: Albumin 3.1 g/dL (3.4-5.0); Calcium 8.8 mg/dL (8.5-10.1); Potassium 3.8 mmol/L (3.5-5.1)
[2022-11-13 08:00] VITALS: BP 101/56
[2022-11-13 08:04] LABS: BUN/Creatinine Ratio 5.3 (10.0-20.0); Bilirubin, Total 0.4 mg/dL (0.2-1.0); Total Protein 6.2 g/dL (6.4-8.2)
[2022-11-13 09:00] VITALS: BP 101/57
[2022-11-13] MEDS: ENOXAPARIN SOD 40 MG/0.4 ML SYRINGE SC SCH (10:40)
[2022-11-13] MEDS: DOCUSATE ORAL LIQUID 100 MG/10 ML UD PO SCH ×2 (10:40→22:00)
[2022-11-13] MEDS: levETIRAcetam 500 MG TAB PO SCH ×2 (10:40→23:10)
[2022-11-13] MEDS: ACETAMINOPHEN 325 MG TAB PO PRN (12:27)
[2022-11-13 13:00] VITALS: BP 101/56
[2022-11-13 17:00] VITALS: BP 101/58
[2022-11-13 21:30] VITALS: BP 125/57
[2022-11-13] MEDS: ATORVASTATIN 20 MG TAB PO SCH (23:09)
[2022-11-14 05:00] VITALS: BP 135/60
[2022-11-14] MEDS: LACTULOSE 20Gm/30ML SOLN PO SCH ×4 (06:00→23:48)
[2022-11-14 08:00] VITALS: BP 116/62
[2022-11-14 08:21] VITALS: BP 116/54
[2022-11-14] MEDS ORDERED: NALOXONE HCL 0.4 MG/ML VIAL ONE (09:12)
[2022-11-14] MEDS ORDERED: MIDAZOLAM HCL 2MG/2ML 2ml VIAL (1mg/ml) ONE (09:13)
[2022-11-14] MEDS ORDERED: diphenhdrAMINE HCL 50 MG/1 ML VL ONE (09:13)
[2022-11-14] MEDS ORDERED: fentaNYL CITRATE 100 MCG/2 ML VL ONE (09:13)
[2022-11-14] MEDS ORDERED: FLUMAZENIL 0.1 MG/ML INJ 10ML MDV IV ONE (09:13)
[2022-11-14] MEDS: levETIRAcetam 500 MG TAB PO SCH ×2 (09:34→21:53)
[2022-11-14] MEDS: ENOXAPARIN SOD 40 MG/0.4 ML SYRINGE SC SCH (09:43)
[2022-11-14] MEDS: DOCUSATE ORAL LIQUID 100 MG/10 ML UD PO SCH ×2 (09:43→21:46)
[2022-11-14] MEDS ORDERED: MIDAZOLAM HCL 2MG/2ML 2ml VIAL (1mg/ml) IV ONE (12:14)
[2022-11-14] MEDS ORDERED: fentaNYL CITRATE 100 MCG/2 ML VL IV ONE (12:14)
[2022-11-14 16:58] VITALS: BP 97/60
[2022-11-14] MEDS: ACETAMINOPHEN 325 MG TAB PO PRN (17:02)
[2022-11-14] MEDS: ATORVASTATIN 20 MG TAB PO SCH (21:52)
[2022-11-14 22:00] VITALS: BP 100/50
[2022-11-15 05:00] VITALS: BP 94/34
[2022-11-15] MEDS: LACTULOSE 20Gm/30ML SOLN PO SCH ×2 (06:00→12:00)
[2022-11-15 09:00] VITALS: BP 98/49
[2022-11-15] MEDS: levETIRAcetam 500 MG TAB PO SCH (09:54)
[2022-11-15] MEDS: ENOXAPARIN SOD 40 MG/0.4 ML SYRINGE SC SCH (09:55)
[2022-11-15] MEDS: DOCUSATE ORAL LIQUID 100 MG/10 ML UD PO SCH (09:58)
[2022-11-15 11:56] VITALS: BP 98/49
[2022-11-15 13:00] VITALS: BP 110/49
[2022-11-15] MEDS: ACETAMINOPHEN 325 MG TAB PO PRN (14:34)
== END 2022-11-15 14:50 | disposition home or self-care (01) | DRG 392 ==
LOC: ER 17:21 → OVERFLOW 11-09 04:48 → WEST WING 11-09 08:09
PROVIDERS: ADMIT Nurse Practitioner; ATTEND Internal Medicine
PROC: 0DJD8ZZ Inspection of Lower Intestinal Tract, Via Natural or Artificial Opening Endoscopic (ICD-10-PCS; principal; 2022-11-14 12:04)
DX: K59.00 Constipation, unspecified (principal); K64.8 Other hemorrhoids; E11.65 Type 2 diabetes mellitus with hyperglycemia; K64.4 Residual hemorrhoidal skin tags; F03.90 Unspecified dementia, unspecified severity, without behavioral disturbance, psychotic disturbance, mood disturbance, and anxiety; E87.8 Other disorders of electrolyte and fluid balance, not elsewhere classified; E78.5 Hyperlipidemia, unspecified; Z86.73 Personal history of transient ischemic attack (TIA), and cerebral infarction without residual deficits; Z74.01 Bed confinement status
CPT/HCPCS: 36415; 45378; 74018; 74176; 80048; 80053; 81001; 82962; 83690; 84484; 85025; 85610; 85730; 86850; 86900; 86901; 87086; 96374; 96375; G0378; J2250; J2405